=== PATIENT | female | born 1980 | race Caucasian/White ===

== ENCOUNTER 2022-11-08 16:04 | Outpatient (CLI) | payer OTHER | END 2022-11-08 16:05 | disposition home or self-care (01) | LOC: BICRAD 16:04 | PROVIDERS: ATTEND Nurse Practitioner Family | DX: R05.1 Acute cough (principal) | CPT/HCPCS: 71046 ==

== ENCOUNTER 2023-02-01 04:27 | Emergency (ER) | payer OTHER ==
[2023-02-01] MEDS ORDERED: Ketorolac Tromethamine 30 MG/ML VIAL ONE (04:49)
[2023-02-01] MEDS ORDERED: Ondansetron PF 4 MG/2 ML Vial ONE (04:49)
[2023-02-01] MEDS ORDERED: Dicyclomine 20 MG/2 ML VIAL ONE (04:49)
[2023-02-01 05:08] LABS: #Eosinphils 0.2 thou/uL (0.0-0.7); #Monocytes 0.6 thou/uL (0.11-0.59); #Neutrophils 3.5 thou/uL (1.40-6.50); %Basophils 0.4 % (0.0-1.0); %Eosinophils 2.6 % (0.0-10.0); %Lymphocytes 37.2 % (21.0-51.0); %Monocytes 8.7 % (0.0-10.0); %Neutrophils 50.8 % (42.0-75.0); Hemoglobin 14.4 g/dL (12.0-16.0); Mean Corpuscular HGB CONC 33.3 g/dL (32.0-36.0); Mean Corpuscular Hemoglobin 30.3 pg (27.0-31.0); Mean Corpuscular Volume 90.8 fl (78.0-98.0); Platelet Count 248 10x3/uL (130-400); RBC Distribution Width 12.7 % (11.5-14.5); Red Blood Cell (RBC) Count 4.76 mill/uL (4.20-5.40); White Blood Cell (WBC) Count 6.9 10x3/uL (4.8-10.8)
[2023-02-01 05:46] LABS: Bacteria/HPF None Seen HPF (None Seen); Bilirubin Negative (Negative); Blood, Urine Negative (Negative); CAUTI Indications for Culture Pelvic or flank pain; Clarity Clear (Clear); Glucose, Urine (Dipstick) Normal (Negative); Ketone, Urine Negative (Negative); Leukocyte Negative Leu/uL (Negative); Nitrite Negative (Negative); Protein, Urine (Dipstick) Negative (Neg-Trace); RBC/HPF 0-3 HPF (0-3); Specific Gravity, Urine 1.021 (1.002-1.036); Squamous Epithelial 0-3 HPF (0-3); Urobilinogen Normal mg/dL (Less than 2); WBC/HPF 0-3 HPF (0-3); pH, Urine 5.5 (5.0-9.0)
[2023-02-01 05:47] LABS: Pregnancy Test - Urine (BHCG) Negative (Negative); Pregu Control Background? CLEAR/WHITE (CLR/WHITE); Pregu Control Bar Appear? YES (CONTROL BAR); Specific Gravity 1.021 (1.002-1.036)
[2023-02-01 05:50] LABS: Urine Culture Reflex No No
[2023-02-01 06:41] LABS: Albumin 4.3 g/dL (3.5-5.0)
[2023-02-01 06:43] LABS: Chloride 107 mmol/L (98-107); Sodium 139 mmol/L (136-145)
[2023-02-01 06:44] LABS: Calcium 9.2 mg/dL (7.8-10.44)
[2023-02-01 06:45] LABS: Glucose 90 mg/dL (70-105)
[2023-02-01 06:48] LABS: Carbon Dioxide 21 mmol/L (22-29); Globulin 2.6 g/dL (2.4-3.5); Protein, Total 6.9 g/dL (6.0-8.3)
[2023-02-01 06:49] LABS: Anion Gap 15 mmol/L (10-20)
[2023-02-01 06:50] LABS: Bilirubin, Total 0.7 mg/dL (0.2-1.2)
[2023-02-01 06:52] LABS: Alkaline Phosphatase 45 U/L (40-110)
[2023-02-01 06:54] LABS: Calc. Creatinine Clearance 0 mL/min (70-130)
[2023-02-01 06:55] LABS: Estimated GFR 89
[2023-02-01 07:00] LABS: BUN (Urea Nitrogen) 8 mg/dL (7.0-18.7)
[2023-02-01 07:04] LABS: AST (SGOT) 15 U/L (5-34)
[2023-02-01 07:11] LABS: ALT (SGPT) 17 U/L (8-55)
[2023-02-01] MEDS ORDERED: Morphine 4 MG/ML VIAL ONE (07:13)
[2023-02-01] MEDS ORDERED: Iopamidol-370 76% 500 ML MDV (1 ML CHARGE) ONE (15:05)
== END 2023-02-01 08:45 | disposition home or self-care (01) ==
LOC: ERS 04:27
DX: R10.9 Unspecified abdominal pain (principal)
CPT/HCPCS: 36415; 74177; 80053; 81001; 81025; 85025; 96372; 96374; 96375; J1885; J2270; J2405; Q9967

== ENCOUNTER 2023-05-08 07:55 | Outpatient (CLI) | payer OTHER | END 2023-05-08 07:56 | disposition home or self-care (01) | LOC: BICCT 07:55 | PROVIDERS: ATTEND Nurse Practitioner Family | DX: K76.89 Other specified diseases of liver (principal); R42 Dizziness and giddiness; R51.9 Headache, unspecified; R11.0 Nausea; D18.03 Hemangioma of intra-abdominal structures | CPT/HCPCS: 70450; 74183 ==

== ENCOUNTER 2024-04-03 12:00 | Outpatient (CLI) | payer BC | END 2024-04-03 12:01 | disposition home or self-care (01) | LOC: BICMAMMO 12:00 | PROVIDERS: ATTEND Family Medicine | DX: Z12.31 Encounter for screening mammogram for malignant neoplasm of breast (principal) | CPT/HCPCS: 77067 ==

== ENCOUNTER 2024-04-04 11:32 | Outpatient (CLI) | payer BC | END 2024-04-04 11:33 | disposition home or self-care (01) | LOC: BICRAD 11:32 | PROVIDERS: ATTEND Family Medicine | DX: M47.26 Other spondylosis with radiculopathy, lumbar region (principal); M41.9 Scoliosis, unspecified | CPT/HCPCS: 72100 ==